=== PATIENT | female | born 1970 | race Two or more races ===

== ENCOUNTER 2020-09-06 14:24 | Outpatient (CLI) | payer OTHER | END 2020-09-06 15:26 | disposition home or self-care (01) | LOC: OFIC 805 14:24 | PROVIDERS: ATTEND Otolaryngology Otology & Neurotology | DX: H60.593 Other noninfective acute otitis externa, bilateral (principal); L30.8 Other specified dermatitis; H92.03 Otalgia, bilateral; H61.23 Impacted cerumen, bilateral ==

== ENCOUNTER 2020-09-11 12:25 | Outpatient (CLI) | payer OTHER | END 2020-09-11 14:05 | disposition home or self-care (01) | LOC: OFIC 805 12:25 | PROVIDERS: ATTEND Otolaryngology Otology & Neurotology | DX: H60.593 Other noninfective acute otitis externa, bilateral (principal); L30.8 Other specified dermatitis; H92.03 Otalgia, bilateral; H61.23 Impacted cerumen, bilateral ==